=== PATIENT | female | born 1955 | race Caucasian/White ===

== ENCOUNTER → 2016-06-09 | Outpatient (CLI) | payer OTHER | LOC: LAB 10:28 | DX: T85.71XA Infection and inflammatory reaction due to peritoneal dialysis catheter, initial encounter (principal); B99.9 Unspecified infectious disease; Y84.9 Medical procedure, unspecified as the cause of abnormal reaction of the patient, or of later complication, without mention of misadventure at the time of the procedure | CPT/HCPCS: 36415; 80170; 80202 ==

== ENCOUNTER → 2016-06-14 | Outpatient (CLI) | payer OTHER | LOC: CT 13:00 | DX: F17.210 Nicotine dependence, cigarettes, uncomplicated (principal) | CPT/HCPCS: G0297 ==

== ENCOUNTER → 2016-06-18 | Outpatient (CLI) | payer OTHER | LOC: EROP 11:21 | DX: T85.71XD Infection and inflammatory reaction due to peritoneal dialysis catheter, subsequent encounter (principal); N18.6 End stage renal disease; Z88.8 Allergy status to other drugs, medicaments and biological substances; Z88.5 Allergy status to narcotic agent | CPT/HCPCS: 96365; 96366; 96367; J1580; J3370 ==

== ENCOUNTER → 2016-06-24 | Outpatient (CLI) | payer OTHER | LOC: EROP 12:12 | DX: T85.71XA Infection and inflammatory reaction due to peritoneal dialysis catheter, initial encounter (principal); N18.6 End stage renal disease | CPT/HCPCS: 36415; 80170; 80202; 96365; 96366; 96367; J1580; J3370 ==

== ENCOUNTER → 2016-07-05 | Outpatient (CLI) | payer OTHER | LOC: MAMO 11:40 | DX: Z12.31 Encounter for screening mammogram for malignant neoplasm of breast (principal) | CPT/HCPCS: G0202 ==

== ENCOUNTER 2021-02-19 10:12 | Emergency (ER) | payer OTHER ==
[~2021-02-19 10:12] MED LIST: AMIODARONE HCL200 MG PO; AMLODIPINE BESY10 MG PO; ANUSOL HC SUPP1 SUPP PR; ASPIRIN EC81 MG PO; ASPIRIN81 MG PO; AURYXIA210 MG PO; BACTRIM DS TAB1 EACH PO; BUPROPION HCL150 M1 PO; CARVEDILOL3.125 MG PO; CATAPRES 0.1MG0.1 MG PO; CEFUROXIME500 MG PO; CORDARONE 200M200 MG PO; COZAAR 50MG TAB50 MG PO; DESYREL 50 MG T50 MG PO; HYDRALAZINE HCL50 MG PO; K-DUR TAB 20 M20 MEQ PO; LEVAQUIN500 MG PO; LOPRESSOR 25 MG25 MG PO; METOPROLOL TART25 MG PO; OLANZAPINE5 MG PO; OMEPRAZOLE20 MG PO; PROTONIX40 MG PO; PROZAC20 MG PO; RENVELA800 MG PO; ROPINIROLE HCL0.5 MG PO; SENSIPAR 30 MG30 MG PO; WELLBUTRIN SR150 M1 PO; ZOFRAN4 MG PO; ZYPREXA5 MG PO; sensipar PO
[2021-02-19 11:08] LABS: HEMOGLOBIN 8.3 gm/dl (12.3-15.3); RED BLOOD COUNT 2.6 M/UL (4.00-5.10); WHITE BLOOD COUNT 12.8 K/UL (4.5-11.0)
[2021-02-19] MEDS ORDERED: AUGMENTIN 250-250 MG GT (12:11)
[2021-02-20 08:35] LABS: ACINETOBACTER BAUMANNII Not Detected (Negative); CANDIDA ALBICANS Not Detected (Negative); CANDIDA KRUSEI Not Detected (Negative); CANDIDA TROPICALIS Not Detected (Negative); ENTEROCOCCUS Not Detected (Negative); ESCHERICHIA COLI Not Detected (Negative); HAEMOPHILUS INFLUENZAE Not Detected (Negative); KLEBSIELLA OXYTOCA Not Detected (Negative); KLEBSIELLA PNEUMONIAE Not Detected (Negative); KPC-CARBAPENEM-RESISTANCE GENE Not Detected (Negative); PROTEUS Not Detected (Negative); PSEUDOMONAS AERUGINOSA Not Detected (Negative); SERRATIA MARCESANS Not Detected (Negative); STAPHYLOCOCCUS AUREUS Not Detected (Negative); STREP AGALACTIAE (GROUP B) Not Detected (Negative); STREP PYOGENES (GROUP A) Not Detected (Negative); STREPTOCOCCUS Not Detected (Negative); mecA (METHICILLIN RESIST GENE Not Detected (Negative); vanA/B (VANCOMYCIN RESIST GENE Not Detected (Negative)
[2021-02-20 10:08] LABS: STAPHYLOCOCCUS DETECTED (Negative)
[2021-02-20] MEDS ORDERED: CEPHALEXIN500 MG PO (15:03)
[2021-02-20] MEDS ORDERED: BACTRIM DS TAB1 EACH PO (15:03)
== END 2021-02-19 12:25 | disposition home or self-care (01) ==
LOC: ER1 10:12
PROVIDERS: Family Medicine
DX: J18.9 Pneumonia, unspecified organism (principal); L03.116 Cellulitis of left lower limb
CPT/HCPCS: 71046; 80053; 85025; 87040; 87070; 87077; 87150; 87186; 87205; 99283

== ENCOUNTER 2021-02-20 12:58 | Emergency (ER) | payer OTHER ==
[~2021-02-20 12:58] MED LIST changes: +AUGMENTIN 250-250 MG GT
[2021-02-20 14:30] LABS: HEMOGLOBIN 8.8 gm/dl (12.3-15.3); RED BLOOD COUNT 2.73 M/UL (4.00-5.10); WHITE BLOOD COUNT 12.8 K/UL (4.5-11.0)
[2021-02-20] MEDS ORDERED: BACTRIM DS TAB1 EACH PO (15:03)
[2021-02-20] MEDS ORDERED: CEPHALEXIN500 MG PO (15:03)
== END 2021-02-20 15:09 | disposition home or self-care (01) ==
LOC: ER1 12:58
PROVIDERS: Physician Assistant
DX: R78.81 Bacteremia (principal); F17.200 Nicotine dependence, unspecified, uncomplicated; I12.9 Hypertensive chronic kidney disease with stage 1 through stage 4 chronic kidney disease, or unspecified chronic kidney disease; N18.9 Chronic kidney disease, unspecified; Z99.2 Dependence on renal dialysis
CPT/HCPCS: 85025; 87040; 96374; 99283

== ENCOUNTER 2021-03-20 10:39 | Emergency (ER) | payer OTHER ==
[~2021-03-20 10:39] MED LIST changes: +CEPHALEXIN500 MG PO
[2021-03-20 11:16] LABS: HEMOGLOBIN 8.5 gm/dl (12.3-15.3); RED BLOOD COUNT 2.62 M/UL (4.00-5.10)
[2021-03-20 12:08] LABS: BORDETELLA PARAPERTUSSIS Not Detected (Not Detectd); BORDETELLA PERTUSSIS Not Detected (Not Detectd); CHLAMYDIA PNEUMONIAE Not Detected (Not Detectd); CORONAVIRUS HKU1 Not Detected (Not Detectd); CORONAVIRUS NL63 Not Detected (Not Detectd); CORONAVIRUS OC43 Not Detected (Not Detectd); CORONOAVIRUS 229E Not Detected (Not Detectd); HUMAN METAPNEUMOVIRUS Not Detected (Not Detectd); HUMAN RHINOVIRUS/ENTEROVIRUS Not Detected (Not Detectd); INFLUENZA A Not Detected (Not Detectd); INFLUENZA B Not Detected (Not Detectd); MYCOPLASMA PNEUMONIAE Not Detected (Not Detectd); PARAINFLUENZA VIRUS 1 Not Detected (Not Detectd); PARAINFLUENZA VIRUS 2 Not Detected (Not Detectd); PARAINFLUENZA VIRUS 3 Not Detected (Not Detectd); PARAINFLUENZA VIRUS 4 Not Detected (Not Detectd); RESPIRATORY SYNCYTIAL VIRUS Not Detected (Not Detectd)
[2021-03-20 14:10] LABS: SARS-CoV-2 NOT DETECTED (Not Detectd)
[2021-03-20] MEDS ORDERED: BACTROBAN OINT22 GM EXT (15:14)
[2021-03-20] MEDS ORDERED: MAGIC MOUTH WASH PO (15:14)
[2021-03-20] MEDS ORDERED: CEPHALEXIN500 M1 PO (15:14)
== END 2021-03-20 15:48 | disposition home or self-care (01) ==
LOC: ER1 10:39
PROVIDERS: Physician Assistant Medical
DX: R05.9 Cough, unspecified (principal); I13.11 Hypertensive heart and chronic kidney disease without heart failure, with stage 5 chronic kidney disease, or end stage renal disease; N18.6 End stage renal disease; L02.612 Cutaneous abscess of left foot; Z20.822 Contact with and (suspected) exposure to COVID-19; Z99.2 Dependence on renal dialysis; F17.290 Nicotine dependence, other tobacco product, uncomplicated
CPT/HCPCS: 71045; 80053; 82550; 82553; 83874; 83880; 84484; 85025; 87633; 93005; 99284

== ENCOUNTER → 2021-04-18 | Outpatient (CLI) | payer OTHER ==
[~2021-04-18] MED LIST changes: +BACTROBAN OINT22 GM EXT; +CEPHALEXIN500 M1 PO; +MAGIC MOUTH WASH PO
== END ==
LOC: KOH-I 04-11 11:30
DX: I70.245 Atherosclerosis of native arteries of left leg with ulceration of other part of foot (principal); L97.529 Non-pressure chronic ulcer of other part of left foot with unspecified severity; R09.89 Other specified symptoms and signs involving the circulatory and respiratory systems
CPT/HCPCS: 93925

== ENCOUNTER → 2021-05-25 | Outpatient (CLI) | payer OTHER ==
[~2021-05-25] MED LIST changes: +BUPROPION HCL75 MG PO; +CYMBALTA 20 MG20 MG PO; +ELIQUIS5 MG PO; +FENOFIBRATE48 MG PO; +FLUOXETINE HCL20 M1 PO; +INTRINSI B12-F1 EACH PO; +LEVOTHYROXINE25 MC1 PO; +OMEPRAZOLE40 MG PO; +TRAZODONE HCL50 MG PO
[2021-05-25 13:39] LABS: HEMOGLOBIN 11.1 gm/dl (12.3-15.3); RED BLOOD COUNT 3.57 M/UL (4.00-5.10); WHITE BLOOD COUNT 9.7 K/UL (4.5-11.0)
== END ==
LOC: LAB 12:36
PROVIDERS: Internal Medicine Cardiovascular Disease
DX: I48.91 Unspecified atrial fibrillation (principal); E78.5 Hyperlipidemia, unspecified; I10 Essential (primary) hypertension; E03.9 Hypothyroidism, unspecified; R06.02 Shortness of breath; Z79.899 Other long term (current) drug therapy
CPT/HCPCS: 36415; 80053; 84439; 84443; 84481; 85025

== ENCOUNTER → 2021-05-27 | Outpatient (CLI) | payer OTHER | END | disposition home or self-care (01) | LOC: CATH 06:47 | DX: I48.19 Other persistent atrial fibrillation (principal); I12.0 Hypertensive chronic kidney disease with stage 5 chronic kidney disease or end stage renal disease; N18.6 End stage renal disease; E78.5 Hyperlipidemia, unspecified; E03.9 Hypothyroidism, unspecified; Z87.891 Personal history of nicotine dependence; Z79.82 Long term (current) use of aspirin; Z79.01 Long term (current) use of anticoagulants; Z79.899 Other long term (current) drug therapy; Z88.5 Allergy status to narcotic agent; Z82.49 Family history of ischemic heart disease and other diseases of the circulatory system | CPT/HCPCS: 92960; 93005; J1200; J1742; J2250; J2310; J3010 ==

== ENCOUNTER → 2021-06-08 | Outpatient (CLI) | payer OTHER | LOC: HEART 5 09:13 | DX: R06.02 Shortness of breath (principal); Z79.899 Other long term (current) drug therapy | CPT/HCPCS: 94060; 94729 ==

== ENCOUNTER 2021-09-25 16:17 | Emergency (ER) | payer OTHER ==
[2021-09-25 19:34] LABS: HEMOGLOBIN 9.6 gm/dl (12.3-15.3); RED BLOOD COUNT 2.87 M/UL (4.00-5.10); WHITE BLOOD COUNT 10.3 K/UL (4.5-11.0)
== END 2021-09-26 03:05 | disposition short-term general hospital (02) ==
LOC: ER1 16:17
PROVIDERS: Physician Assistant
DX: A41.9 Sepsis, unspecified organism (principal); R65.20 Severe sepsis without septic shock; Z20.822 Contact with and (suspected) exposure to COVID-19; Z99.2 Dependence on renal dialysis; I48.91 Unspecified atrial fibrillation; D64.9 Anemia, unspecified; Z79.01 Long term (current) use of anticoagulants; I10 Essential (primary) hypertension; F17.290 Nicotine dependence, other tobacco product, uncomplicated
CPT/HCPCS: 71045; 72131; 73502; 80053; 82550; 82553; 83605; 83690; 84484; 85025; 86850; 86900; 86901; 87040; 93005; 96361; 96374; 96375; 99285; U0002

== ENCOUNTER 2021-11-14 17:26 | Emergency (ER) | payer MEDICARE, OTHER ==
[2021-11-14 19:36] LABS: HEMOGLOBIN 13.2 gm/dl (12.3-15.3); RED BLOOD COUNT 3.89 M/UL (4.00-5.10); WHITE BLOOD COUNT 11.8 K/UL (4.5-11.0)
[2021-11-14] MEDS ORDERED: CLEOCIN HCL300 MG PO (21:51)
[2021-11-14] MEDS ORDERED: BACITRACIN3.5 GM OP (21:51)
[2021-11-14] MEDS ORDERED: [UNRECOGNIZED DRUG - REMARK] (21:54)
== END 2021-11-14 22:25 | disposition home or self-care (01) ==
LOC: ER1 17:26
PROVIDERS: Physician Assistant
DX: L03.115 Cellulitis of right lower limb (principal); I48.91 Unspecified atrial fibrillation; I13.11 Hypertensive heart and chronic kidney disease without heart failure, with stage 5 chronic kidney disease, or end stage renal disease; N18.6 End stage renal disease; Z88.8 Allergy status to other drugs, medicaments and biological substances; F17.290 Nicotine dependence, other tobacco product, uncomplicated
CPT/HCPCS: 73610; 80053; 83605; 85025; 85652; 86140; 99283

== ENCOUNTER 2021-11-19 22:48 | Inpatient (IN) | payer OTHER ==
[~2021-11-19] VITALS: Ht 170.2 cm; Wt 90.4 kg
[~2021-11-19 22:48] MED LIST changes: +BACITRACIN3.5 GM OP; +CLEOCIN HCL300 MG PO; -LEVOTHYROXINE25 MC1 PO; +LEVOTHYROXINE25 MCG PO; +[UNRECOGNIZED DRUG - REMARK]
[2021-11-20 00:24] LABS: HEMOGLOBIN 11.7 gm/dl (12.3-15.3); RED BLOOD COUNT 3.5 M/UL (4.00-5.10); WHITE BLOOD COUNT 16.9 K/UL (4.5-11.0)
--- NOTE | 2021-11-20 16:02 | NUR ---
RADIOLOGIST FROM [facility] CALLED TO REPORT FINDINGS ON ULTRASOUND AND TO GIVE RECOMMENDATIONS DR THOMAS NOTIFIED
[2021-11-21 06:46] LABS: WHITE BLOOD COUNT 17.5 K/UL (4.5-11.0)
[2021-11-21 06:55] LABS: HEMOGLOBIN 9.7 gm/dl (12.3-15.3); RED BLOOD COUNT 2.97 M/UL (4.00-5.10)
[2021-11-22 04:24] LABS: HEMOGLOBIN 9.9 gm/dl (12.3-15.3); RED BLOOD COUNT 2.9 M/UL (4.00-5.10)
[2021-11-22 04:25] LABS: WHITE BLOOD COUNT 10.8 K/UL (4.5-11.0)
[2021-11-22 10:13] LABS: HBSAG SCREEN Negative (Negative); HCV AB <0.1 (0.0-0.9); HEP A AB, IGM Negative (Negative); HEP B CORE AB, IGM Negative (Negative)
[2021-11-24] MEDS ORDERED: COLCHICINE 0.60.6 MG PO (10:26)
[2021-11-24] MEDS ORDERED: HYDROCODON-ACE1 EAC4 PO (10:26)
[2021-11-24] MEDS ORDERED: ASPIRIN EC81 MG PO (10:26)
== END 2021-11-24 15:28 | disposition home or self-care (01) | DRG 553 ==
LOC: ER1 22:48 → M/S 11-20 02:17 → CDU 11-20 02:17 → M/S 11-20 06:18
PROVIDERS: Internal Medicine; Internal Medicine Nephrology; Physician Assistant; ADMIT Internal Medicine
PROC: 5A1D70Z Performance of Urinary Filtration, Intermittent, Less than 6 Hours Per Day (ICD-10-PCS; principal; 2021-11-21)
PROC: 5A1D70Z Performance of Urinary Filtration, Intermittent, Less than 6 Hours Per Day (ICD-10-PCS; 2021-11-23)
DX: M10.071 Idiopathic gout, right ankle and foot (principal); N18.6 End stage renal disease; L03.115 Cellulitis of right lower limb; C64.2 Malignant neoplasm of left kidney, except renal pelvis; I48.20 Chronic atrial fibrillation, unspecified; I12.0 Hypertensive chronic kidney disease with stage 5 chronic kidney disease or end stage renal disease; I73.9 Peripheral vascular disease, unspecified; S90.01XA Contusion of right ankle, initial encounter; N28.9 Disorder of kidney and ureter, unspecified; F31.9 Bipolar disorder, unspecified; X58.XXXA Exposure to other specified factors, initial encounter; K21.9 Gastro-esophageal reflux disease without esophagitis; Y92.009 Unspecified place in unspecified non-institutional (private) residence as the place of occurrence of the external cause; Z99.2 Dependence on renal dialysis; Z79.01 Long term (current) use of anticoagulants; Z87.442 Personal history of urinary calculi; Z98.51 Tubal ligation status; Z90.49 Acquired absence of other specified parts of digestive tract; Z88.8 Allergy status to other drugs, medicaments and biological substances; Z82.3 Family history of stroke
CPT/HCPCS: 36415; 73610; 73700; 73718; 74170; 75635; 80048; 80053; 80061; 80074; 80202; 83036; 83605; 84550; 85025; 85379; 85652; 85730; 86140; 87040; 87070; 87077; 87186; 87205; 93971; 96374; 96375; 99285; J0690; J0696; J1100; J2405; J3370; J7030; J7070; Q9967

== ENCOUNTER 2021-11-28 12:39 | Emergency (ER) | payer OTHER ==
[~2021-11-28] VITALS: Ht 170.2 cm; Wt 86.2 kg
[~2021-11-28 12:39] MED LIST changes: +COLCHICINE 0.60.6 MG PO; +HYDROCODON-ACE1 EAC4 PO
[2021-11-28 13:22] LABS: RED BLOOD COUNT 2.05 M/UL (4.00-5.10); WHITE BLOOD COUNT 15.6 K/UL (4.5-11.0)
== END 2021-11-28 15:55 | disposition short-term general hospital (02) ==
LOC: ER1 12:39
PROVIDERS: Emergency Medicine
DX: K92.2 Gastrointestinal hemorrhage, unspecified (principal); I48.91 Unspecified atrial fibrillation; I12.0 Hypertensive chronic kidney disease with stage 5 chronic kidney disease or end stage renal disease; N18.6 End stage renal disease; F17.290 Nicotine dependence, other tobacco product, uncomplicated; Z20.822 Contact with and (suspected) exposure to COVID-19
CPT/HCPCS: 36430; 80053; 82270; 82550; 82553; 84484; 85025; 85610; 85730; 86850; 86900; 86901; 86920; 93005; 99285; C9113; J2405; J7050; J7168; P9016; U0002